=== PATIENT | male | born 1985 ===

== ENCOUNTER 2019-08-12 17:23 | Outpatient (REF) | payer MEDICAID, SELFPAY ==
[2019-08-12 19:03] LABS: HCT 47.9 % (40.0-50.0); HGB 16.2 g/dL (13.5-17.5); Mean Corp. HGB Concentration 33.8 g/dL (32.0-36.0); Mean Corpuscular Hemoglobin 28.3 pg (27.0-33.0); Mean Corpuscular Volume 83.7 fL (80-95); Mean Platelet Volume 12.6 fL (8.0-11.0); Platelet Count 253 x1000/uL (130-400); RBC 5.72 m/cumm (4.50-6.00); RBC Distribution Width 14.3 % (11.8-14.1); White Blood Cell Count 7.27 k/cumm (4.4-10.8)
[2019-08-12 19:45] LABS: ALT 35 U/L (16-63); AST 20 U/L (15-37); Albumin 4.3 g/dL (3.4-5.0); Alkaline Phosphatase 92 U/L (46-116); Amylase 43 U/L (25-115); Anion Gap 11.8 mmol/L (3-11); BUN 7 mg/dL (7-18); Bilirubin, Direct 0.12 mg/dL (0.00-0.20); Bilirubin, Total 0.4 mg/dL (0.2-1.0); CO2 26.2 mmol/L (21.0-32.0); CREATININE 0.85 mg/dL (0.70-1.30); Calcium 9.1 mg/dL (8.5-10.1); Chloride 103 mmol/L (98-107); Glucose 93 mg/dL (74-106); Lipase 67 U/L (73-393); Sodium 141 mmol/L (136-145); Total Protein 7.6 g/dL (6.4-8.2)
== END 2019-08-12 17:43 ==
LOC: NCHCN 17:23
PROVIDERS: PCP Physician Assistant Medical; Visit Provider Nurse Practitioner Family
DX: R11.10 Vomiting, unspecified (principal)
CPT/HCPCS: 80048; 80076; 83690; 85027; 82150

== ENCOUNTER 2022-05-12 16:14 | Outpatient (REF) | payer MEDICAID, SELFPAY ==
[2022-05-12 19:01] LABS: Abs Immature Grans 0.02 10^3/uL (0.0-0.06); Absolute Basophil Count 0.06 10^3/uL (0.0-0.2); Absolute Eosinophil Count 0.08 10^3/uL (0.0-0.7); Absolute Lymphocyte Count 3.55 10^3/uL (1.2-3.4); Absolute Monocyte Count 0.77 10^3/uL (0.1-0.8); Absolute Neutrophil Count 4.96 10^3/uL (1.2-6.7); Basophils % 0.6; Eosinophils % 0.8; HCT 45.1 % (40.0-50.0); HGB 15.3 g/dL (13.5-17.5); Immature Grans % 0.2; Lymphocytes % 37.6; MCH 28.4 pg (27.0-33.0); MCHC 33.9 % (32.0-36.0); MCV 84 fL (80-95); Monocytes % 8.2; Neutrophils % 52.6; Platelet Count 305 10^3/uL (130-400); RBC 5.38 10^6/uL (4.36-5.78); RDW 12.9 % (11.8-14.1); RDW-SD 39.2 fL; WBC 9.44 10^3/uL (4.4-10.8)
[2022-05-12 19:30] LABS: Iron 63 ug/dL (65-175); Total Iron Binding Capacity 369 ug/dL (250-450); Transferrin Sat 17 % (20-55)
[2022-05-12 19:35] LABS: ALT 347 U/L (16-63); AST 119 U/L (15-37); Albumin 4.3 g/dL (3.4-5.0); Alkaline Phosphatase 128 U/L (46-116); Anion Gap 11.2 mmol/L (3-11); BUN 9 mg/dL (7-18); Bilirubin, Total 0.3 mg/dL (0.2-1.0); CO2 25.8 mmol/L (21.0-32.0); CREATININE 0.9 mg/dL (0.70-1.30); Calcium 9.4 mg/dL (8.5-10.1); Chloride 108 mmol/L (98-107); Estimated GFR 111.42 (mL/min/1.73m2); Ferritin 405 ng/mL (26-388); Glucose 108 mg/dL (74-106); LDL CHOLESTEROL 142 mg/dL (<100); Potassium 3.3 mmol/L (3.5-5.1); Sodium 145 mmol/L (136-145); Total Protein 7.8 g/dL (6.4-8.2)
[2022-05-16 11:07] LABS: Hepatitis A Antibody IgM Negative (Negative); Hepatitis B Core Antibody Negative (Negative); Hepatitis B surface Ag Negative (Negative); Hepatitis C Ab w Rflx HCV PCR Negative (Negative)
== END 2022-05-12 16:15 | disposition home or self-care (01) ==
LOC: NCHCN 16:14
PROVIDERS: PCP Physician Assistant Medical; Visit Provider Physician Assistant
DX: R74.8 Abnormal levels of other serum enzymes (principal)
CPT/HCPCS: 80053; 83721; 86704; 86709; 86803; 87340; 82728; 83540; 83550; 85025

== ENCOUNTER 2023-01-13 14:44 | Outpatient (REF) | payer MEDICAID, SELFPAY ==
[2023-01-13 19:24] LABS: Abs Immature Grans 0.04 10^3/uL (0.0-0.06); Absolute Basophil Count 0.08 10^3/uL (0.0-0.2); Absolute Lymphocyte Count 1.79 10^3/uL (1.2-3.4); Absolute Monocyte Count 0.74 10^3/uL (0.1-0.8); Absolute Neutrophil Count 7.13 10^3/uL (1.2-6.7); Basophils % 0.8; HGB 16.6 g/dL (13.5-17.5); Immature Grans % 0.4; Lymphocytes % 18.1; MCH 28.6 pg (27.0-33.0); MCHC 33.2 % (32.0-36.0); MCV 86 fL (80-95); MPV 12.8 fL (8.0-11.0); Monocytes % 7.5; Neutrophils % 72.2; Platelet Count 299 10^3/uL (130-400); RBC 5.81 10^6/uL (4.36-5.78); RDW 12.5 % (11.8-14.1); RDW-SD 38.8 fL; WBC 9.88 10^3/uL (4.4-10.8)
[2023-01-13 19:43] LABS: ALT 56 U/L (16-63); AST 40 U/L (15-37); Albumin 3.7 g/dL (3.4-5.0); Alkaline Phosphatase 108 U/L (46-116); Anion Gap 10.1 mmol/L (3-11); BUN 7 mg/dL (7-18); Bilirubin, Total 0.5 mg/dL (0.2-1.0); CO2 27.9 mmol/L (21.0-32.0); CREATININE 0.9 mg/dL (0.70-1.30); Calcium 9.8 mg/dL (8.5-10.1); Chloride 102 mmol/L (98-107); Estimated GFR 111.42 (mL/min/1.73m2); Glucose 183 mg/dL (74-106); Sodium 140 mmol/L (136-145); Total Protein 8.3 g/dL (6.4-8.2)
[2023-01-13 19:51] LABS: Hemoglobin A1C 7.4 % (<5.7)
== END 2023-01-13 14:45 | disposition home or self-care (01) ==
LOC: NCHCN 14:44
PROVIDERS: PCP Physician Assistant Medical; Visit Provider Physician Assistant
DX: E11.65 Type 2 diabetes mellitus with hyperglycemia (principal); B99.9 Unspecified infectious disease
CPT/HCPCS: 80053; 87077; 83036; 85025; 87070; 87205

== ENCOUNTER 2024-07-23 17:36 | Outpatient (REF) | payer BC, SELFPAY ==
[2024-07-23 19:33] LABS: Abs Immature Grans 0.03 10^3/uL (0.0-0.06); Absolute Basophil Count 0.08 10^3/uL (0.0-0.2); Absolute Eosinophil Count 0.14 10^3/uL (0.0-0.7); Absolute Lymphocyte Count 3.96 10^3/uL (1.2-3.4); Absolute Monocyte Count 0.76 10^3/uL (0.1-0.8); Absolute Neutrophil Count 4.44 10^3/uL (1.2-6.7); Basophils % 0.9 %; Eosinophils % 1.5 %; HCT 48.5 % (40.0-50.0); HGB 16.7 g/dL (13.5-17.5); Immature Grans % 0.3 %; Lymphocytes % 42.1 %; MCH 30.1 pg (27.0-33.0); MCHC 34.4 % (32.0-36.0); MCV 88 fL (80-95); MPV 11.9 fL (8.0-11.0); Monocytes % 8.1 %; Neutrophils % 47.1 %; Platelet Count 248 10^3/uL (130-400); RBC 5.54 10^6/uL (4.36-5.78); RDW 12.7 % (11.8-14.1); RDW-SD 41.1 fL; WBC 9.41 10^3/uL (4.4-10.8)
[2024-07-23 19:47] LABS: Uric Acid 5.3 mg/dL (3.5-7.2)
== END 2024-07-23 17:37 | disposition home or self-care (01) ==
LOC: NCHCN 17:36
PROVIDERS: PCP Physician Assistant Medical; Visit Provider Nurse Practitioner Family
DX: M79.671 Pain in right foot (principal)
CPT/HCPCS: 84550; 85025

== ENCOUNTER 2024-08-14 15:54 | Outpatient (REF) | payer BC, SELFPAY ==
[2024-08-14 20:55] LABS: ALT 131 U/L (16-63); AST 178 U/L (15-37); Albumin 4.0 g/dL (3.4-5.0); Alkaline Phosphatase 150 U/L (46-116); Anion Gap 8.6 mmol/L (3-11); BUN 1 mg/dL (7-18); Bilirubin, Total 0.7 mg/dL (0.2-1.0); CO2 29.4 mmol/L (21.0-32.0); Calcium 9.3 mg/dL (8.5-10.1); Calculated LDL 174 mg/dL (<100); Chloride 100 mmol/L (98-107); Cholesterol 236 mg/dL (<200); Estimated GFR 118.72 (mL/min/1.73m2); Glucose 145 mg/dL (74-106); HDL Cholesterol 30 mg/dL (>or=40); Potassium 4.0 mmol/L (3.5-5.1); Sodium 138 mmol/L (136-145); Total Protein 8.1 g/dL (6.4-8.2); Triglyceride 164 mg/dL (<150)
== END 2024-08-14 15:55 | disposition home or self-care (01) ==
LOC: NCHCN 15:54
PROVIDERS: PCP Physician Assistant Medical; Visit Provider Physician Assistant
DX: E11.65 Type 2 diabetes mellitus with hyperglycemia (principal); K70.0 Alcoholic fatty liver
CPT/HCPCS: 80053; 80061